=== PATIENT | male | born 1965 | race Caucasian/White ===

== ENCOUNTER 2021-08-06 15:50 | Inpatient (IN) | payer MEDICAID ==
[~2021-08-06] VITALS: Ht 177.8 cm; Wt 90.9 kg
[2021-08-06 16:29] LABS: BASOPHILS # (AUTO) 0.1 X10'3 (0-0.2); EOSINOPHILS % (AUTO) 0.5 % (0-6); HEMATOCRIT 47.3 % (42.0-52.0); HEMOGLOBIN 15.9 g/dl (14.0-17.9); LYMPHOCYTES # (AUTO) 1.9 X10'3 (1.1-4.8); LYMPHOCYTES % (AUTO) 21.5 % (21-51); MEAN CORPUSCULAR HEMOGLOBIN 31.1 PG (27.0-31.0); MEAN CORPUSCULAR HGB CONC 33.6 g/dL (33.0-36.5); MEAN CORPUSCULAR VOLUME 92.7 FL (78-98); MONOCYTES # (AUTO) 0.6 X10'3 (0-0.9); MONOCYTES % (AUTO) 7.1 % (2-12); NEUTROPHILS # (AUTO) 6.1 X10'3 (1.8-7.7); NEUTROPHILS % (AUTO) 69.9 % (42-75); PLATELET COUNT 238 X10'3 (140-440); RED CELL DISTRIBUTION WIDTH 14.4 % (11.5-14.5); WHITE BLOOD COUNT 8.8 X10'3 (4.5-11.0)
[2021-08-06 16:45] LABS: ALANINE AMINOTRANSFERASE 40 U/L (12-78); ALBUMIN 4.2 G/DL (3.4-5.0); ALBUMIN/GLOBULIN RATIO 1.2 (1.1-1.5); ALKALINE PHOSPHATASE 72 IU/L (46-116); ANION GAP 14 (8-16); ASPARTATE AMINO TRANSFERASE 36 U/L (10-37); BILIRUBIN,TOTAL 1.1 MG/DL (0.1-1.0); BLOOD UREA NITROGEN 11 MG/DL (7-18); BUN/CREATININE RATIO 11.3 (5.4-32.0); CALCIUM 9.7 MG/DL (8.5-10.1); CHLORIDE 100 MMOL/L (99-107); CREATININE 0.97 MG/DL (0.60-1.10); GLUCOSE 110 MG/DL (70-104); SODIUM 138 MMOL/L (135-145); TOTAL CARBON DIOXIDE 23.9 MMOL/L (24-32); TOTAL PROTEIN 7.7 G/DL (6.4-8.2); eGFR 80 ML/MIN
[2021-08-06] MEDS ORDERED: iohexol 300mg/ml 100ml inj. ONE (18:14)
[2021-08-06] MEDS ORDERED: iohexol 350MG/ML 100ml bottle IV ONE ×2 (18:15→18:28)
[2021-08-06] MEDS ORDERED: ondansetron/PF 4mg/2ml inj IV ONE (18:20)
[2021-08-06] MEDS ORDERED: aspirin 325mg tablet PO ONE (18:20)
[2021-08-06] MEDS ORDERED: acetaminophen 325mg tablet PO ONE (18:20)
[2021-08-06] MEDS ORDERED: morphine 4 MG/ML inj SYRINge IV ONE ×2 (18:20→19:40)
--- NOTE | 2021-08-06 18:30 | NUR ---
Pt pink, no acute/resp distress. PIV site c/d/i s complication. Bed in lowest position, wheels locked, rail 2/2 up. Call nagy in reach. Will continue to monitor for acute changes and needs.
[2021-08-06] MEDS ORDERED: potassium Cl 20 mEq SR tablet PO PRN ×2 (20:50)
[2021-08-06] MEDS ORDERED: magnesium 2GM in 50ml NS 50 ML IV PRN (20:50)
[2021-08-06] MEDS ORDERED: PERFLUTREN PROTEIN-A MICROSPHR (Optison) 0.22 MG/ML 3ML VIAL IV PRN (20:50)
[2021-08-06] MEDS ORDERED: ondansetron/PF 4mg/2ml inj IV PRN (20:50)
[2021-08-06] MEDS ORDERED: mag hydrox/Alum hydrox/simeth 30ml oral suspension PO PRN (20:50)
[2021-08-06] MEDS ORDERED: normal saline 1000ml 1,000 ML IV SCH (20:50)
[2021-08-06] MEDS ORDERED: atenolol 25mg tablet PO ONE (20:50)
[2021-08-06] MEDS ORDERED: potassium CL 10mEq/100ml bag 100 ML IV PRN (20:50)
[2021-08-06] MEDS ORDERED: magnesium 4gm in 100ml NS 100 ML IV PRN (20:50)
[2021-08-06] MEDS ORDERED: acetaminophen 325mg tablet PO PRN (20:50)
[2021-08-06] MEDS ORDERED: magnesium Cl slow-release 64mg tablet PO PRN (20:50)
[2021-08-06] MEDS ORDERED: magnesium hydroxide 30ml (MOM) UD suspension PO PRN (20:50)
[2021-08-06] MEDS ORDERED: regadenoson 0.4mg/5ml syringe IV PRN (20:55)
[2021-08-06] MEDS ORDERED: metoprolol tartrate 1mg/ml inj IV PRN (20:55)
[2021-08-06] MEDS ORDERED: aminophylline 250mg/10ml inj. IV PRN (20:55)
[2021-08-06] MEDS ORDERED: nitroGLYCERIN 0.4mg SUBLingual tab SL PRN (20:55)
[2021-08-06 21:09] LABS: MAGNESIUM 2.4 MG/DL (1.5-2.4); POTASSIUM 4.1 MMOL/L (3.5-5.1)
[2021-08-06 21:12] LABS: HEMOGLOBIN A1C 5.9 % (4.5-6.2)
--- NOTE | 2021-08-06 21:22 | NUR ---
Pt states he took his Atenolol this am and usually takes it in the a.m. Please reschedule for am. VS HR 68 B/P 128/85 B/P. Pt pink, alert, no acute/resp distress.
[2021-08-07] VITALS (7 sets, daily range): BP systolic 105–125; BP diastolic 64–90
[2021-08-07] MEDS ORDERED: ALB0.5UD IH (00:53)
[2021-08-07] MEDS ORDERED: BUPR300T86 PO (00:53)
[2021-08-07] MEDS ORDERED: ASPI-1397 PO (00:53)
[2021-08-07] MEDS ORDERED: NIFE30TA95 PO (00:53)
[2021-08-07] MEDS ORDERED: ALBUTEROL ×2 (00:53→00:55)
[2021-08-07] MEDS ORDERED: ATEN25TA PO (00:54)
[2021-08-07] MEDS ORDERED: ATOR-2 PO (00:54)
[2021-08-07] MEDS ORDERED: LOSA50TA64 PO (00:54)
[2021-08-07] MEDS ORDERED: NITR0.4T48 SL (00:54)
[2021-08-07] MEDS ORDERED: TAMSULOSIN ×3 (00:55→00:57)
[2021-08-07] MEDS ORDERED: LABE200T5 PO (00:55)
[2021-08-07] MEDS ORDERED: PANT40TA54 PO (00:55)
[2021-08-07] MEDS ORDERED: ASPI-1475 PO (00:56)
[2021-08-07] MEDS ORDERED: LABE100T5 PO (00:56)
[2021-08-07] MEDS ORDERED: ALB0.5UD (00:57)
[2021-08-07] MEDS ORDERED: FLO0.4C PO (00:57)
[2021-08-07 01:31] LABS: BASOPHILS % (AUTO) 0.5 % (0-1); EOSINOPHILS # (AUTO) 0.1 X10'3 (0-0.9); EOSINOPHILS % (AUTO) 1.7 % (0-6); HEMATOCRIT 46.2 % (42.0-52.0); HEMOGLOBIN 15.6 g/dl (14.0-17.9); LYMPHOCYTES # (AUTO) 2.8 X10'3 (1.1-4.8); LYMPHOCYTES % (AUTO) 42.5 % (21-51); MEAN CORPUSCULAR HGB CONC 33.9 g/dL (33.0-36.5); MEAN CORPUSCULAR VOLUME 94.5 FL (78-98); MEAN PLATELET VOLUME 9.6 FL (7.4-10.4); MONOCYTES # (AUTO) 0.6 X10'3 (0-0.9); MONOCYTES % (AUTO) 8.6 % (2-12); NEUTROPHILS # (AUTO) 3.1 X10'3 (1.8-7.7); NEUTROPHILS % (AUTO) 46.7 % (42-75); PLATELET COUNT 219 X10'3 (140-440); RED BLOOD COUNT 4.88 X10'6 (4.70-6.10); RED CELL DISTRIBUTION WIDTH 14.7 % (11.5-14.5); WHITE BLOOD COUNT 6.6 X10'3 (4.5-11.0)
[2021-08-07 01:50] LABS: ALANINE AMINOTRANSFERASE 32 U/L (12-78); ALBUMIN 3.6 G/DL (3.4-5.0); ALBUMIN/GLOBULIN RATIO 1.2 (1.1-1.5); ALKALINE PHOSPHATASE 65 IU/L (46-116); ANION GAP 8 (8-16); ASPARTATE AMINO TRANSFERASE 27 U/L (10-37); BILIRUBIN,TOTAL 0.8 MG/DL (0.1-1.0); BLOOD UREA NITROGEN 11 MG/DL (7-18); BUN/CREATININE RATIO 10.6 (5.4-32.0); CALCIUM 8.6 MG/DL (8.5-10.1); CHLORIDE 106 MMOL/L (99-107); CHOL/HDL RATIO 4.7 (0.00-4.99); CHOLESTEROL 252 MG/DL (0-200); CREATININE 1.04 MG/DL (0.60-1.10); GLUCOSE 99 MG/DL (70-104); HDL CHOLESTEROL 54 MG/DL (35-60); LDL CHOLESTEROL 176 MG/DL (50-100); MAGNESIUM 2.3 MG/DL (1.5-2.4); POTASSIUM 4.1 MMOL/L (3.5-5.1); SODIUM 140 MMOL/L (135-145); TOTAL CARBON DIOXIDE 26.2 MMOL/L (24-32); TOTAL PROTEIN 6.6 G/DL (6.4-8.2); TRIGLYCERIDES 120 MG/DL (20-135); eGFR 74 ML/MIN
[2021-08-07] MEDS ORDERED: albuterol 2.5 MG/3 ML nebule NEB PRN (02:05)
[2021-08-07 04:17] LABS: PLATELET ESTIMATE NORMAL; TOTAL CELLS COUNTED 100
--- NOTE | 2021-08-07 06:11 | NUR ---
Pt pink, no acute/resp distress. PIV site c/d/i s complication. Bed in lowest position, wheels locked, rail 2/2 up. Call nagy in reach. Will continue to monitor for acute changes and needs. Handoff report to dayshift RN
--- NOTE | 2021-08-07 06:19 | NUR ---
Report from ARIAS Woods.
--- NOTE | 2021-08-07 06:30 | NUR ---
First contact with pt. found supine in bed. reports that chest pain is still present. awaiting stress test this morning. no distress.
[2021-08-07] MEDS ORDERED: atorvastatin 20mg tablet PO SCH (08:00)
[2021-08-07] MEDS ORDERED: tamsulosin 0.4mg capsule PO SCH (08:00)
[2021-08-07] MEDS ORDERED: losartan 50mg tablet PO SCH (08:00)
[2021-08-07] MEDS ORDERED: pantoprazole 40mg Tablet.DR PO SCH (08:00)
[2021-08-07] MEDS ORDERED: docusate sod 100mg capsule PO SCH (08:00)
[2021-08-07] MEDS ORDERED: aspirin 81mg, enteric-coated 1 TAB TABLET.DR PO SCH (08:00)
[2021-08-07] MEDS ORDERED: NIFEdipine XL 30mg tablet PO SCH (08:00)
[2021-08-07] MEDS ORDERED: K and/or MAG REPLACEMENT MC SCH (08:00)
[2021-08-07] MEDS ORDERED: buPROPion SR 150mg tablet PO SCH (08:00)
[2021-08-07] MEDS ORDERED: atenolol 25mg tablet PO SCH (08:00)
[2021-08-07] MEDS ORDERED: enoxaparin 40mg/0.4ml syringe SUBCUT SCH (08:00)
--- NOTE | 2021-08-07 08:02 | NUR ---
dr. golden paged regarding stress test later today.
--- NOTE | 2021-08-07 09:03 | NUR ---
pt to nuc med on monitor with RN,
[2021-08-07] MEDS ORDERED: aminophylline 500mg/20ml vial ONE (09:26)
--- NOTE | 2021-08-07 10:21 | NUR ---
pt back to room 1, report to Anette BIANCHI
--- NOTE | 2021-08-07 10:45 | NUR ---
returned from stress test without incident.
--- NOTE | 2021-08-07 17:39 | NUR ---
Pt arrived on unit at 1140 and had discharge orders by 1142. This patient received a meal tray, ate, fell asleep and upon awakening discovered he was discharged and now able to go home. This Pt was not assessed by the assigned RN outside of a cursory check regarding LOC (AxOx4); pain 1/10 c/o sternal chest discomfort, non-radiating, no diaphorisis or SOB observed. Pt stated, "I feel fine just my sternum feels sore." Pt appeared to be in good spirits and was excited to eat. RN spent about 5 minutes w/ Pt. RN stated to Pt, "I'll return in about 30 minutes or so to do an assessment, etc." Pt acknowledged. RN retruned probably closer to an hour later and found the Pt sleeping w/o s/sx of distress. RN being new to the system was NOT aware that discharge orders had been created. Javier Harrison RN pulled assigned RN aside and educated RN on how to see and acknowledge new orders. By this time the Pt was dressed and ready to go home. Pt was discharged in good spirits w/ stable vital signs and axox4, he was jovial and smiling.
== END 2021-08-07 15:06 | disposition home or self-care (01) | DRG 198 ==
LOC: ER 15:51 → ED HOLD 20:52 → PCU 3S 08-07 11:51
PROVIDERS: ADMIT Internal Medicine; ATTEND Internal Medicine
PROC: B32T1ZZ Computerized Tomography (CT Scan) of Left Pulmonary Artery using Low Osmolar Contrast (ICD-10-PCS; 2021-08-06)
PROC: B3201ZZ Computerized Tomography (CT Scan) of Thoracic Aorta using Low Osmolar Contrast (ICD-10-PCS; 2021-08-06)
PROC: B32S1ZZ Computerized Tomography (CT Scan) of Right Pulmonary Artery using Low Osmolar Contrast (ICD-10-PCS; 2021-08-06)
PROC: 4A02XM4 Measurement of Cardiac Total Activity, External Approach (ICD-10-PCS; principal; 2021-08-07)
PROC: 3E033HZ Introduction of Radioactive Substance into Peripheral Vein, Percutaneous Approach (ICD-10-PCS; 2021-08-07)
DX: R07.89 Other chest pain (principal); I25.10 Atherosclerotic heart disease of native coronary artery without angina pectoris; E78.5 Hyperlipidemia, unspecified; N40.0 Benign prostatic hyperplasia without lower urinary tract symptoms; J44.9 Chronic obstructive pulmonary disease, unspecified; F32.A Depression, unspecified; G47.33 Obstructive sleep apnea (adult) (pediatric); F17.200 Nicotine dependence, unspecified, uncomplicated; I10 Essential (primary) hypertension; I25.2 Old myocardial infarction; Z79.899 Other long term (current) drug therapy; Z88.0 Allergy status to penicillin; Z98.52 Vasectomy status
CPT/HCPCS: 36415; 71045; 71275; 78452; 80053; 80061; 83036; 83735; 83880; 84132; 84484; 85007; 85025; 93005; 93017; 93306; 96374; 96375; 96376; 99285; A9500; G0378; J0280; J1650; J2270; J2405; J2785; J7030; Q9967